=== PATIENT | male | born 1945 ===

== ENCOUNTER → 2018-03-27 21:36 | Outpatient (REF) | payer BC, SELFPAY ==
[2018-03-27 22:21] LABS: Add Manual Diff / Slide Review NO; Basophils Percent Auto 0.5 % (0-2); Eosinophils Percent Auto 0.6 % (2-4); Hematocrit 37.9 % (41-53); Hemoglobin 13.1 g/dL (13.5-17.5); Lymphocytes Percent Auto 27.4 % (25-40); Mean Corpuscular HGB Conc 34.7 % (30-36); Mean Corpuscular Hemoglobin 36.8 PG (26-34); Monocytes Percent Auto 9.8 % (3-14); Neutrophils Absolute Auto 2800 /uL (1500-7000); Neutrophils Percent Auto 61.7 % (50-75); Platelet Count 171 X10^3/uL (150-400); Red Blood Cell Count 3.57 X10^6/uL (4.5-5.9); Red Cell Distribution Width 14.3 % (11.6-14.8); White Blood Cell Count 4.6 X10^3/uL (4.5-11.0)
[2018-03-29 15:02] LABS: Estradiol < 15 pg/mL (< 40)
[2018-03-29 16:11] LABS: Sex Hormone Binding Globulin 19 nmol/L (22-77)
[2018-03-30 14:56] LABS: Testosterone Total 435 ng/dL (250-1100)
== END ==
LOC: LAB 21:36
PROVIDERS: Visit Provider Naturopath
DX: E29.1 Testicular hypofunction (principal); R53.83 Other fatigue
CPT/HCPCS: 82670; 84153; 84154; 84270; 84402; 84403; 85025

== ENCOUNTER → 2018-05-02 23:07 | Outpatient (REF) | payer BC, SELFPAY ==
[2018-05-02 23:09] LABS: Bacteria Urine None Seen; RBC Urine None Seen (0-5/HPF); WBC Urine None Seen (0-5/HPF)
[2018-05-02 23:37] LABS: Appearance Urine UA CLEAR; Bilirubin Urine UA NEGATIVE (NEGATIVE); Color Urine UA YELLOW; Glucose Urine UA NEGATIVE (Negative); Ketones Urine UA NEGATIVE (NEGATIVE); Leukocyte Esterase Urine UA NEGATIVE (NEGATIVE); Nitrite Urine UA NEGATIVE (Negative); Occult Blood Urine UA NEGATIVE (Negative); Protein Urine UA NEGATIVE (Negative); Specific Gravity Urine UA 1.015 (1.000-1.035); Urobilinogen Urine UA 0.2 E.U./dL (0.2)
== END ==
LOC: LAB 23:07
PROVIDERS: Visit Provider Family Medicine
DX: R30.0 Dysuria (principal)
CPT/HCPCS: 81001; 87086

== ENCOUNTER → 2018-07-01 21:26 | Outpatient (REF) | payer BC, SELFPAY ==
[2018-07-01 22:16] LABS: Alanine Aminotransferase 44 IU/L (21-72); Albumin 4.2 g/dL (3.5-5.0); Albumin Globulin Ratio 1.8 (1.0-2.8); Alkaline Phosphatase 56 U/L (38-126); Aspartate Aminotransferase 46 IU/L (17-59); BUN Creatinine Ratio 20.5 (6-22); Bilirubin Total 1.5 mg/dL (0.2-1.3); Blood Urea Nitrogen 39 mg/dL (9-20); Calcium 9.2 mg/dL (8.4-10.2); Carbon Dioxide 19 mmol/L (22-32); Chloride 87 mmol/L (98-107); Estimated Glomerular Filt Rate 34.8 mL/min (>60); Globulin 2.4 g/dL (1.7-4.1); Glucose 81 mg/dL (80-110); HEMOLYSIS < 15 (0-50); Magnesium 1.1 mg/dL (1.6-2.3); Potassium 4.4 mmol/L (3.4-5.1); Sodium 122 mmol/L (137-145); Total Protein 6.6 g/dL (6.3-8.2)
[2018-07-01 22:21] LABS: Add Manual Diff / Slide Review YES; Hematocrit 37.1 % (41-53); Hemoglobin 12.9 g/dL (13.5-17.5); Mean Corpuscular HGB Conc 34.9 % (30-36); Mean Corpuscular Hemoglobin 35.8 PG (26-34); Mean Corpuscular Volume 102.8 fL (80-100); Platelet Count 152 X10^3/uL (150-400); Red Blood Cell Count 3.61 X10^6/uL (4.5-5.9); Red Cell Distribution Width 14.6 % (11.6-14.8); White Blood Cell Count 8.5 X10^3/uL (4.5-11.0)
[2018-07-01 23:55] LABS: Lipase 8459 U/L (23-300)
[2018-07-02 01:44] LABS: Anisocytosis 1+; Macrocytosis 1+
[2018-07-07 22:26] LABS: Methylmalonic Acid 183 nmol/L (87-318)
== END ==
LOC: LAB 21:26
PROVIDERS: Visit Provider Family Medicine
DX: K85.20 Alcohol induced acute pancreatitis without necrosis or infection (principal); E53.9 Vitamin B deficiency, unspecified; I10 Essential (primary) hypertension; R53.83 Other fatigue; R10.13 Epigastric pain; R11.0 Nausea
CPT/HCPCS: 36415; 80053; 82728; 83690; 83735; 83921; 85025

== ENCOUNTER → 2018-09-04 21:23 | Outpatient (ROUT) | payer BC, SELFPAY ==
[2018-09-04 23:19] LABS: Add Manual Diff / Slide Review NO; Basophils Absolute Auto 0 /uL (0-100); Basophils Percent Auto 0.5 % (0-2); Eosinophils Absolute Auto 100 /uL (0-450); Eosinophils Percent Auto 1.5 % (2-4); Hematocrit 37.1 % (41-53); Hemoglobin 12.5 g/dL (13.5-17.5); Lymphocytes Absolute Auto 1500 /uL (1100-4500); Lymphocytes Percent Auto 25.2 % (25-40); Mean Corpuscular HGB Conc 33.6 % (30-36); Mean Corpuscular Hemoglobin 33.5 PG (26-34); Mean Corpuscular Volume 99.5 fL (80-100); Monocytes Absolute Auto 400 /uL (0-900); Monocytes Percent Auto 6.7 % (3-14); Neutrophils Absolute Auto 3800 /uL (1500-7000); Neutrophils Percent Auto 66.1 % (50-75); Platelet Count 218 X10^3/uL (150-400); Red Blood Cell Count 3.73 X10^6/uL (4.5-5.9); Red Cell Distribution Width 13.7 % (11.6-14.8); White Blood Cell Count 5.8 X10^3/uL (4.5-11.0)
[2018-09-05] LABS: Alanine Aminotransferase 31 IU/L (21-72); Albumin 4.1 g/dL (3.5-5.0); Albumin Globulin Ratio 1.7 (1.0-2.8); Alkaline Phosphatase 59 U/L (38-126); Aspartate Aminotransferase 35 IU/L (17-59); BUN Creatinine Ratio 16.2 (6-22); Bilirubin Total 0.5 mg/dL (0.2-1.3); Blood Urea Nitrogen 21 mg/dL (9-20); Calcium 9.8 mg/dL (8.4-10.2); Carbon Dioxide 26 mmol/L (22-32); Chloride 98 mmol/L (98-107); Globulin 2.4 g/dL (1.7-4.1); Glucose 93 mg/dL (80-110); HEMOLYSIS < 15 (0-50); Lipase 84 U/L (23-300); Potassium 4.6 mmol/L (3.4-5.1); Sodium 136 mmol/L (137-145); Total Protein 6.5 g/dL (6.3-8.2)
[2018-09-08 13:08] LABS: Testosterone, Total 770.6; Testosterone,Free 23.4
[2018-09-09 14:00] LABS: PSA Total 3.06 ng/mL (< 4.01)
== END ==
PROVIDERS: Visit Provider Family Medicine
DX: E29.1 Testicular hypofunction (principal); G47.00 Insomnia, unspecified; I10 Essential (primary) hypertension; R53.83 Other fatigue
CPT/HCPCS: 36415; 80053; 83690; 84153; 84154; 84402; 84403; 85025